=== PATIENT | male | born 1975 | race Caucasian/White ===

== ENCOUNTER 2016-10-16 09:11 | Day surgery (SDC) | payer MEDICARE, OTHER ==
[2016-10-14 15:46] VITALS: BMI 28.5
[~2016-10-16 09:11] MED LIST: LACTATED RINGERS 1,000 ML IV SCH
[2016-10-16 09:24] VITALS: RESP 18; TEMP 97.7
[2016-10-16] MEDS ORDERED: LACTATED RINGERS 1,000 ML IV ONE (09:24)
[2016-10-16] MEDS ORDERED: LIDOCAINE 1% 20 ML VIAL (10MG/ML) FOR IV START INTRADERMA ONE (09:24)
[2016-10-16] MEDS ORDERED: MIDAZOLAM 2 MG/2 ML VIAL ONE (10:39)
[2016-10-16] MEDS ORDERED: fentaNYL (PF) 50 MCG/ML 2 ML AMP ONE (10:39)
[2016-10-16] MEDS ORDERED: TRIAMCINOLONE ACETONIDE 40 MG/ML 1 ML VIAL ONE (10:39)
[2016-10-16] MEDS ORDERED: BUPIVACAINE (PF) 0.5% 30 ML VIAL ONE (10:39)
--- NOTE | 2016-10-16 11:01 | P.PCN ---
Date of Procedure: 10/16/16 Procedure(s) Performed: Preoperative diagnoses= 1-bilateral sacroiliitis. 2-lumbar spondylosis with lumbar facet arthropathy without myelopathy 3-lumbar herniated disc disease Postoperative diagnoses= same as preoperative diagnosis. Procedure= bilateral sacroiliac joint steroid injection under fluoroscopic guidance. Anesthesia= conscious sedation with Versed 2 mg and fentanyl 100 micrograms and local infiltration with lidocaine 1% 4 ml Estimated blood loss=minimal. Procedure indication= the patient had a history of severe chronic low back pain , diagnosed with sacroiliitis and lumbar sacral facet arthropathy unresponsive to conservative treatment. Procedure description= the patient was seen and identified in the preoperative holding area, risks and benefits and alternative of the procedure and possible complications discussed with the patient, and he agreed with the preceding, patient signed the consent, an IV was started, and vital signs were monitored and were stable throughout the procedure, patient was placed in the prone position or table and the lumbosacral area was prepped and draped with a sterile fashion, vital signs were closely monitored during the procedure, the fluoroscopy camera was placed in the contralateral oblique view on the right sacroiliac joint and the lower part of the joint was identified, local infiltration of the skin and subcutaneous tissue with lidocaine 1% 2 mL then a 22-gauge Quincke-type spinal needle advanced slowly under fluoroscopy and placed in the posterior and inferior border of the right sacroiliac joint, placement confirmed with AP and lateral view, and after appropriate needle placement confirmed and after negative aspiration for heme and CSF and there was no paresthesia during the injection, 3 ml of Marcaine 0.5% and 40 mg of Kenalog injected after negative aspiration, the needle removed, and the entire same procedure was repeated for the left sacroiliac joint Patient tolerated the procedure well without any complication, The patient returned to supine position after the back was cleaned and a Band- Aid applied, the patient transported to recovery room in stable condition and he was monitored for 30 minutes before he was discharged home and then patient was reexamined before going home and patient was discharged in stable condition and patient will follow up with the pain clinic in a few weeks
[2016-10-16] MEDS ORDERED: IV FLUID CONTINUATION 1,000 ML IV ONE (11:11)
[2016-10-16 11:30] VITALS: BP 113/72; PULSE 82
--- NOTE | 2016-10-16 12:26 | FL ---
EXAMINATION TYPE: FL guided pain mgmt statistic DATE OF EXAM: 10/16/2016 11:04 AM HISTORY: Flouroscopy time 13 seconds of fluoroscopy provided. IMPRESSION: 1. Fluoroscopy time.
== END 2016-10-16 11:35 | disposition home or self-care (01) ==
LOC: ORPAIN 09:11
PROVIDERS: ATTEND Specialist
DX: G89.29 Other chronic pain (principal); M46.1 Sacroiliitis, not elsewhere classified; M46.86 Other specified inflammatory spondylopathies, lumbar region; M47.816 Spondylosis without myelopathy or radiculopathy, lumbar region; M51.26 Other intervertebral disc displacement, lumbar region
CPT/HCPCS: J2250; J3301; J3010; G0260

== ENCOUNTER → 2016-10-30 | Outpatient (CLI) | payer MEDICARE, OTHER ==
[2016-10-30 13:39] VITALS: BP 137/88; PULSE 95; RESP 18
--- NOTE | 2016-10-30 13:56 | P.PN ---
Progress Note - Text This is a 41-year-old male with history of mostly axial lower back pain. The patient has facet arthropathy by MRI and disc protrusion at the L5-S1 level. The patient had bilateral sacroiliac joint steroid injection a few weeks ago which did not really help his pain. The patient has tenderness at the lower lumbar paravertebral area bilaterally more on the right side than the left side. The patient takes Motrin 80 mg once a day and Neurontin 600 mg once a day also takes Cymbalta 120 mg once a day by his primary care physician for history of fibromyalgia as she states. At this point and due to his lack of response to the sacroiliac joint steroid injection I would like to schedule him to have lumbar bilateral medial branch block as a diagnostic procedure. The patient asked for a non-opioid medicine to help with his increasing pain and decreasing his the procedure done so I asked him to take 1 more pill of Motrin 800 mg a day because bevels procedure.
== END | disposition home or self-care (01) ==
LOC: PNWHC3 12:24
PROVIDERS: ATTEND Anesthesiology
DX: M46.96 Unspecified inflammatory spondylopathy, lumbar region (principal); M51.27 Other intervertebral disc displacement, lumbosacral region; Z79.899 Other long term (current) drug therapy; M79.7 Fibromyalgia
CPT/HCPCS: 99211

== ENCOUNTER → 2016-11-13 | Outpatient (CLI) | payer MEDICARE, OTHER ==
[2016-11-13 12:06] VITALS: BP 148/81; PULSE 105; RESP 16; TEMP 98.9
--- NOTE | 2016-11-13 12:37 | P.PN ---
Subjective This is follow-up visit for this patient with a history of severe and chronic low back pain secondary to lumbar degenerative disc disease lumbar facet arthropathy, sacroiliitis we have done interventional pain management injection, bilateral sacroiliac joint steroid injection, He had no benefit, he was seen in the pain clinic, 2 weeks ago and he was scheduled to have diagnostic medial branch block lumbar area 1-Motrin 800 every 6 hours 2-Neurontin 600 mg twice a day 3- Cymbalta 60 mg twice a day Patient denies any side effects of the medication, denies excessive drowsiness or sleepiness, denies suicidal ideation, and reports that the current pain medication is NOT helping To control the pain and improve activity of daily living the VAS 7-8/10 without the medications ,and it drope to 7-8 /10 with the medication Physical Examinations : 1-Constitutiona : Cooperative , not in acute distress . 2-HEENT : nech ; supple , no Lymphadenopathy , no Thyromegaly , normal thyroid size . eyes : no ptosis , no icterus, no photophobia . ENT : normal of hearing , normal oropharynx , no Thrush . 3- Respiratory : Chest clear to auscultations Bilaterally , no wheezing , no Rhonchi . 4- Cardiovascular : regular rate and rhythem , S1 , S2 , no S3 , no S4. 5- Gastrointestinal : abdomen soft no tenderness , bowel sounds positive all four quadrents , no organomegally . 6- Genitourinary : Defferred . 7- neurologic : Cranial nerve II to XII intact , no focal neurological deffecit . 8-psychatric : alert , oriented X 3 , appropriate affect , intact judgment and insight . 9-Lymphatic : no Lymphadenopathy . 10- musculoskeltal : exams of the cervical spine = motor strength normal bilateral upper extremities exams of the Lumber spine = motor strength lower extremities ,thigh and legs .5/5 deep tendon reflexes : normal Knee Jerk , normal ankle Jerk . lumber facet Loading Test positive strait leg raising test positive at 30 degree , RT ,LT , Fabere test positive RT and positive LT . Range of motion: Range of motion in flexion of the lumbar spine 30 degrees Range of motion range of motion of extension of the lumbar spine 10 Assessment and plan = - Chronic low back pain secondary to lumbar degenerative disc disease , lumbar spondylosis with facet arthropathy without myelopathy , - And sacroiliitis - diagnoses, prognosis, and treatment options including but not limited to physical therapy, surgical interventions, interventional therapies , and medication management including narcotics and adjuvant medication were discussed with the patient and all The questions answered -medication management =1-change Neurontin to 400 mg every 8 hours . Continue Cymbalta (ascription from primary care) Start patient on Shelley 7.5/325 every 8 hours when necessary for pain dispense -procedure= patient already scheduled to have diagnostic medial branch block lumbar area are december 05
--- NOTE | 2016-11-13 12:39 | P.PN ---
Progress Note - Text Urine drug screen was ordered today and will be checked at next visit
== END | disposition home or self-care (01) ==
LOC: PNWHC3 11:29
PROVIDERS: ATTEND Specialist
DX: M51.36 Other intervertebral disc degeneration, lumbar region (principal); M46.96 Unspecified inflammatory spondylopathy, lumbar region; M46.1 Sacroiliitis, not elsewhere classified; Z79.899 Other long term (current) drug therapy
CPT/HCPCS: 80307 ×2; G0463; 99211

== ENCOUNTER → 2017-10-02 | Outpatient (CLI) | payer MEDICARE, OTHER ==
--- NOTE | 2017-10-02 15:27 | US ---
EXAMINATION TYPE: US kidneys/renal and bladder DATE OF EXAM: 10/02/2017 COMPARISON: Renal ultrasound January 20, 2015 CLINICAL HISTORY: N28.1 Kidney cyst. EXAM MEASUREMENTS: Right Kidney: 10.9 x 3.3 x 3.5 cm Left Kidney: 10.2 x 4.4 x 4.0 cm Post Void Residual Volume: 9.5 mL Right Kidney: small cyst rt upper 1.7 x 1.5 x 1.2 cm Left Kidney: wnl Bladder: wnl Bilateral Jets seen: Yes Normal Post Void Residual: Yes There is no evidence for hydronephrosis at this point in time. No nephrolithiasis is seen. No new s uspicious solid or cystic masses are identified. The urinary bladder is satisfactorily distended wit hout intraluminal mass or wall thickening. After voiding minimal residual urine is seen. Bilateral u reteral jets are seen. IMPRESSION: No hydronephrosis is evident bilaterally. There is stable simple appearing cyst upper pole level righ t kidney measuring up to 1.7 cm on long axis on current study.
== END | disposition home or self-care (01) ==
LOC: RADUSWWP 14:54
PROVIDERS: ATTEND Family Medicine
DX: N28.1 Cyst of kidney, acquired (principal)
CPT/HCPCS: 76770

== ENCOUNTER → 2017-11-10 | Outpatient (CLI) | payer MEDICARE, OTHER ==
--- NOTE | 2017-11-10 12:27 | MR ---
EXAMINATION TYPE: MR lumbar spine wo con DATE OF EXAM: 11/10/2017 COMPARISON: 07/23/2016 HISTORY: Intervertebral disc displacement, lumbar, pain TECHNIQUE: Multiplanar, multisequence images of the lumbar spine were acquired. FINDINGS: A subcentimeter T1/T2 hyperintense vertebral body hemangioma is seen of L1. Remainder of the bone mar row signal is unremarkable and within normal limits. Small Schmorl's node is seen in the superior end plate of L4. Vertebral bodies maintain normal vertebral body heights and alignment. Disc desiccation is again seen at L4-L5 and L5-S1. Conus medullaris is unremarkable terminating at T12-L1. T1 hypointe nse and T2 hyperintense right renal 1.9 cm lesion representing a renal cyst on the recent ultrasound of 10/02/2017. L1-L2: Normal disc appearance without desiccation. No herniation, protrusion or disc bulging. No ca nal stenosis is present. Foramina are patent bilaterally. L2-L3: There is a small broad-based disc bulges there is flattening of the usual disc concavity poste riorly. No resultant neural foraminal stenosis or spinal canal stenosis is seen. L3-L4: There is a small broad-based disc bulges there is flattening of the usual disc concavity poste riorly. No resultant neural foraminal stenosis or spinal canal stenosis is seen. L4-L5: Minimal increase in the size of the small central disc protrusion/herniation superimposed upon a broad-based disc bulge is again seen resulting in mild bilateral neural foraminal narrowing and mi nimally impressing upon the ventral thecal sac without significant spinal canal stenosis. Minimal fac et arthropathy is again seen. L5-S1: There is a left paracentral disc herniation/protrusion with patency of the neural foramen and spinal canal. IMPRESSION: 1. Interval minimal increase in the size of the small central disc herniation at L4-L5 creating mild bilateral neural foraminal narrowing. 2. Stability of the left paracentral disc herniation at L5-S1 in comparison to exam of 07/23/2016 with out neural foraminal narrowing or spinal canal stenosis.
== END | disposition home or self-care (01) ==
LOC: RADMRIMAIN 11:07
PROVIDERS: ATTEND Psychiatry & Neurology Neurology
DX: M99.73 Connective tissue and disc stenosis of intervertebral foramina of lumbar region (principal); M51.27 Other intervertebral disc displacement, lumbosacral region
CPT/HCPCS: 72148

== ENCOUNTER → 2018-06-05 | Outpatient (CLI) | payer MEDICARE, OTHER ==
--- NOTE | 2018-06-07 15:35 | MR ---
EXAMINATION TYPE: MR lumbar spine wo con DATE OF EXAM: 06/05/2018 COMPARISON: 11/10/2017, 07/23/2016 HISTORY: Neck pain, headaches, LBP, BLE radic x several years TECHNIQUE: T1 and T2 axial and sagittal images of the lumbar spine are submitted. FINDINGS: There is no abnormal signal seen within the visualized spinal cord or paraspinal soft tissu es. Simple appearing right renal cyst. At L1-2 there is no disc herniation or canal stenosis. No foraminal encroachment. No degenerative dis c disease. At L2-3 there is no disc herniation or canal stenosis. No foraminal encroachment. No degenerative dis c disease At L3-4 there is no disc herniation or canal stenosis. No foraminal encroachment. No degenerative dis c disease. Mild facet arthropathy noted. At L4-5 there is degenerative disc disease with broad-based central disc herniation and moderate effa cement of thecal sac. Facet arthropathy noted and there is mild bilateral foraminal encroachment. At L5-S1 there is central small disc herniation L5-S1 with degenerative disc disease is stable. Mild arthropathy of the facets and mild bilateral foraminal encroachment. Moderate to severe degenerative disc disease. IMPRESSION: 1. Stable disc herniations at L4-5 and L5-S1. 2. Stable degenerative disc disease L4-5 and L5-S1. EXAMINATION TYPE: MR cervical spine wo con DATE OF EXAM: 06/05/2018 COMPARISON: NONE HISTORY: Neck pain, headaches, LBP, BLE radic x several years TECHNIQUE: T1 sagittal and coronal, T2 sagittal, and gradient echo axial views of the cervical spine are submitted. FINDINGS: The cranial cervical junction is preserved. There is no abnormal signal seen within the sp inal cord or paraspinal soft tissues. Shotty adenopathy seen in the soft tissues. At C2-3 there is no disc herniation or canal stenosis. No foraminal encroachment. At C3-4 there is mild bilateral uncovertebral joint hypertrophy. No foraminal encroachment. No disc h erniation or canal stenosis. At C4-5 there is very minimal central disc bulging no evidence of canal stenosis. Canal stenosis. No foraminal encroachment. At C5-6 there is degenerative disc disease. There is a small focal central disc herniation is stable compared to the prior exam. There is effacement of thecal sac but no spinal cord contact. Neural fora nae remain patent. At C6-7 there is severe degenerative disc disease with broad-based central disc herniation resulting in anterior compression the spinal cord. Findings are stable. Uncovertebral joint hypertrophy bilater ally with mild bilateral foraminal encroachment At C7-T1 there is no disc herniation or canal stenosis. No foraminal encroachment IMPRESSION: 1. Stable central disc herniation C6-C7 with moderate anterior spinal cord compression. Stable mild bilateral foraminal encroachment. 2. Stable small focal central disc herniation with effacement of thecal sac but no spinal cord contac t C5-C6. 3. At C4-C5 there is minimal central disc bulging but no canal stenosis or foraminal encroachment.
== END ==
LOC: RADMRIMAIN 20:55
PROVIDERS: ATTEND Psychiatry & Neurology Pain Medicine
DX: M51.27 Other intervertebral disc displacement, lumbosacral region (principal); M51.37 Other intervertebral disc degeneration, lumbosacral region; M50.023 Cervical disc disorder at C6-C7 level with myelopathy; M50.221 Other cervical disc displacement at C4-C5 level
CPT/HCPCS: 72141; 72148

== ENCOUNTER → 2024-05-27 | Outpatient (CLI) | payer MEDICARE ==
[2024-05-27 15:59] VITALS: BP 111/74; PULSE 85; RESP 16; TEMP 98.6
--- NOTE | 2024-05-27 18:31 | P.SLEEP ---
History of Present Illness DATE: 05/27/2024 CONSULTATION/NEW PATIENT EVALUATION HISTORY OF PRESENT ILLNESS/SLEEP-WAKE EVALUATION: 48-year-old gentleman had be en evaluated in the sleep center for obstructive sleep apnea hypopnea syndrome. Patient has history of obstructive sleep apnea for 5 years, diagnosed in another institution. Last CPAP titration done about 5 months ago. I checked CPAP unit, in automatic regimen with a pressure 8-15, average pressure 9 cm of water. Usage is 98% and about 94% for more than 4 hours, average 5 hours 31 minutes, good compliance. High leak 42.3 L/min from full facemask. Apnea hypopnea index is 1.5 which is normal SLEEP SCHEDULE: Usually sleep schedule from 9 PM to 69 AM. FALLING ASLEEP: No problems with falling asleep. DURING SLEEP: Patient wakes up from sleep up to 3 times with nocturia with positive history of night terrors. No history of hypnogogical hallucinations, sleep paralysis, or cataplexy. DURING THE DAY/WAKE STATE: Patient may feel some sleepiness during the day. [place] sleepiness scale is 12. Patient takes 1 nap at 4 PM. PAST MEDICAL HISTORY: Bipolar, COPD, hyperlipidemia. PAST SURGICAL HISTORY: None. MEDICATIONS: Please see below. SOCIAL HISTORY: Positive for [id number] smoking, continue to smoke, other please see below. FAMILY HISTORY: Hypertension, stroke, diabetes, acid reflux, thyroid problems. REVIEW OF SYSTEMS: Nocturia, excessive daytime sleepiness. No fevers. No double vision. No recent chest pain. No shortness of breath. No abdominal pain. No bleeding episodes. No blood in urine. No seizure episodes. PHYSICAL EXAMINATION: GENERAL: A pleasant patient without any distress. VITAL SIGNS: Please see below, weight 230 pounds, BMI 31.4. HEENT: PERRLA, EOMI. Evaluation of oropharynx showed tongue protrudes midline, low position of soft palate Mallampati 23. NECK: Supple. No JVD. Thyroid is not palpable. 17 inches in circumference. LUNGS: Clear to percussion and to auscultation. Good air exchange. No wheezing or rhonchi. HEART: S1, S2 regular. No murmurs, gallops or rubs. ABDOMEN: Soft and nontender. Bowel sounds are present. No organomegaly appreciated. EXTREMITIES: No clubbing or cyanosis. HYSTER DRIVER: Awake, alert, and oriented x3. Cranial nerves 2 to 7 intact. There is no fasciculation or atrophy noted. No focal deficits observed. ASSESSMENT: 1. Obstructive sleep apnea hypopnea syndrome for 5 years, diagnosed with another institution. Patient continued to use his CPAP equipment every night, normal apnea hypopnea index reading from the CPAP unit. 2. Patient continued to have some symptoms of sleepiness with [place] Sleepiness Scale 12. 3. Bipolar. 4. COPD with history of [id number] smoking, continue to smoke. 5 hyperlipidemia. 6 . Mild obesity by BMI 31.4. PLAN: 1. Patient will continue to use CPAP equipment every night for the whole night. 2. We will get and review results of previous sleep studies. 3. Preferable position during sleep on the side. 4. No driving if patient feels any sleepiness. Patient is aware of civil and criminal liability for unsafe driving. 5. Sleep hygiene with regular sleep time for at least 7.5-8 hours. 6. Watching weight. 7. Follow-up visit in 3 months. Thank you very much for referring this patient for consultation. Sincerely, Juan Benton MD, PhD, FAASM. Diplomat of [place] [employer], Sleep Medicine Board by [employer] [employer] [facility] Sl[facility] cc: Gracia Snyder MD Past Medical History Past Medical History: COPD, Fibromyalgia, Hyperlipidemia, Pneumonia, Sleep Apnea/CPAP/BIPAP Additional Past Medical History / Comment(s): migraines, weakness when get excited, bronchitis, snoring, headaches, insomnia, Bipolar 1, restless legs, 05/27/24 pt states has been having chest pains for about 6 months now, just had workup at [employer] on and they couldn't find anything." History of Any Multi-Drug Resistant Organisms: None Reported Past Surgical History: Orthopedic Surgery Additional Past Surgical History / Comment(s): teeth extraction; finger surg. middle finger rt hand Past Anesthesia/Blood Transfusion Reactions: Motion Sickness Past Psychological History: Bipolar, Depression Additional Psychological History / Comment(s): Bipolar Type 1 Smoking Status: Former smoker, Vaper Past Alcohol Use History: None Reported Additional Past Alcohol Use History / Comment(s): no alcohol since 2012, smokes 1 ppd started age 13 (Patient states "I am recovered", not in recovery, I am recovered". Past Drug Use History: Cocaine Additional Drug Use History / Comment(s): Patient states used cocaine back when was using alcholol. - Past Family History Mother Family Medical History: Diabetes Mellitus Additional Family Medical History / Comment(s): "Something along the lines of an MS problem, something to do with her legs" Father Family Medical History: Diabetes Mellitus, GERD/Reflux, Hyperlipidemia, Hypertension Additional Family Medical History / Comment(s): Ulcers, Medications and Allergies Home Medications Medication Instructions Recorded Confirmed Type ARIPiprazole [Abilify] 10 mg PO DAILY 09/08/14 11/13/16 History DULoxetine HCL [Cymbalta] 60 mg PO BID 09/08/14 11/13/16 History Gabapentin 600 mg PO BID PRN 09/08/14 11/13/16 History Ibuprofen [Motrin] 200 - 400 mg PO Q6HR PRN 10/04/14 11/13/16 History Atorvastatin [Lipitor] 20 mg PO DAILY 08/19/16 11/13/16 History traZODone HCL 50 mg PO BID PRN 08/19/16 10/30/16 History Albuterol Inhaler [Ventolin Hfa 1 - 2 puff INHALATION DIRECTED 10/14/16 11/13/16 History Inhaler] PRN Albuterol Nebulized [Ventolin 2.5 mg INHALATION DIRECTED PRN 10/14/16 11/13/16 History Nebulized] Cholecalciferol [Vitamin D3] 1,000 unit PO DAILY 10/14/16 11/13/16 History Montelukast [Singulair] 10 mg PO HS 10/14/16 11/13/16 History Allergies Allergy/AdvReac Type Severity Reaction Status Date / Time bee pollen AdvReac Swelling Verified 10/30/16 13:29 Physical Exam Vitals: Vital Signs Temp Pulse Resp BP Pulse Ox 05/27/24 15:58 98.6 F 85 16 111/74 96 Intake and Output 05/27/24 05/27/24 05/27/24 06:59 14:59 22:59 Other: Weight 104.326 kg Sleep Note - Sleep Data ESS Total: 12 - Sleep Note Sleep Note: Temperature: 98.6 F Pulse Rate: 85 Respiratory Rate: 16 Blood Pressure: 111/74 SpO2: 96 Height: 5 ft 11.5 in Weight: 104.326 kg BMI: Neck Circumference: 17
== END ==
LOC: 3 N SLEEP 15:33
PROVIDERS: ATTEND Internal Medicine
CPT/HCPCS: 99211

== ENCOUNTER 2024-08-23 14:26 | Emergency (ER) | payer MEDICARE ==
[2024-08-23 14:31] VITALS: PULSE 86
[2024-08-23] MEDS: IBUPROFEN 800 MG TAB PO STA (14:57)
[2024-08-23] MEDS: HYDROcodone/APAP 5-325MG 1 EACH TAB PO STA ×2 (14:58→16:15)
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
--- NOTE | 2024-08-23 15:34 | XR ---
Left ankle HISTORY: Pain following fall. COMPARISON: None. TECHNIQUE: 3 views left ankle were obtained. FINDINGS: The mortise is intact. There is no fracture or focal intraosseous abnormality. There is moderate soft tissue swelling over the lateral malleolus. IMPRESSION: 1. Moderate soft tissue swelling over the lateral malleolus. 2. No fracture or focal intraosseous abnormality. [facility], Workstation: [facility], 08/23/2024 3:32 PM
--- NOTE | 2024-08-23 15:36 | XR ---
Left foot HISTORY: Pain following trauma. COMPARISON: None. TECHNIQUE: 3 views left foot were obtained. FINDINGS: There is a comminuted minimally displaced fracture of the calcaneus. Remaining osseous structures and articulations are normal. There is no soft tissue abnormality. IMPRESSION: Comminuted fracture of the calcaneus. [facility], , 08/23/2024 3:34 PM
--- NOTE | 2024-08-23 15:38 | XR ---
Left tibia and fibula. HISTORY: Pain following trauma. COMPARISON: None TECHNIQUE: 4 views of the left tibia and fibula were obtained. FINDINGS: There is no fracture, focal intraosseous abnormality, cortical disruption or periosteal reaction. Sof t tissues are unremarkable. IMPRESSION: No significant abnormality seen. [facility], , 08/23/2024 3:35 PM
[2024-08-23] MEDS: ACET/COD 300 MG/30 MG STARTER PACK 6 TAB BTL PO STA (17:35)
[2024-08-23 17:44] VITALS: BP 146/86; RESP 18; TEMP 98.1
== END 2024-08-23 17:46 | disposition home or self-care (01) ==
LOC: EC 14:26
DX: S92.002A Unspecified fracture of left calcaneus, initial encounter for closed fracture (principal); F17.290 Nicotine dependence, other tobacco product, uncomplicated; Z91.030 Bee allergy status; V19.9XXA Pedal cyclist (driver) (passenger) injured in unspecified traffic accident, initial encounter
CPT/HCPCS: 99284

== ENCOUNTER → 2024-09-03 | Outpatient (CLI) | payer MEDICARE ==
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
== END | disposition home or self-care (01) ==
LOC: RADUSWWP 10:29
PROVIDERS: ATTEND Podiatrist Foot & Ankle Surgery
DX: S92.012D Displaced fracture of body of left calcaneus, subsequent encounter for fracture with routine healing (principal); I82.409 Acute embolism and thrombosis of unspecified deep veins of unspecified lower extremity; R60.0 Localized edema

== ENCOUNTER → 2024-09-29 | Outpatient (CLI) | payer MEDICARE ==
[2024-09-29 14:09] VITALS: BP 121/73; PULSE 72; RESP 16; TEMP 97.7
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
== END ==
LOC: 3 N SLEEP 13:37
PROVIDERS: ATTEND Internal Medicine
DX: G47.33 Obstructive sleep apnea (adult) (pediatric) (principal); E66.9 Obesity, unspecified; E78.5 Hyperlipidemia, unspecified; J44.9 Chronic obstructive pulmonary disease, unspecified; F31.9 Bipolar disorder, unspecified; F17.200 Nicotine dependence, unspecified, uncomplicated; Z98.890 Other specified postprocedural states; Z99.89 Dependence on other enabling machines and devices; Z68.33 Body mass index [BMI] 33.0-33.9, adult; Z91.030 Bee allergy status
CPT/HCPCS: 99212

== ENCOUNTER → 2025-04-12 | Outpatient (CLI) | payer MEDICARE, OTHER | LOC: CPPFTMAIN 12:30 | PROVIDERS: ATTEND Family Medicine | DX: R06.02 Shortness of breath (principal); F17.200 Nicotine dependence, unspecified, uncomplicated; Z91.030 Bee allergy status | CPT/HCPCS: 94060; 94726; 94729 ==